=== PATIENT | male | born 1975 | race Caucasian/White ===

== ENCOUNTER 2017-01-23 14:06 | Outpatient (CLI) | payer OTHER, MEDICAID | END 2017-01-23 14:07 | disposition home or self-care (01) | LOC: NC 14:06 | PROVIDERS: ATTEND Family Medicine | DX: E11.9 Type 2 diabetes mellitus without complications (principal); Z71.3 Dietary counseling and surveillance; E66.9 Obesity, unspecified; Z68.43 Body mass index [BMI] 50.0-59.9, adult; Z79.84 Long term (current) use of oral hypoglycemic drugs ==